=== PATIENT | male | born 1950 | race Caucasian/White ===

== ENCOUNTER 2022-02-25 23:47 | Emergency (ER) | payer MEDICARE, OTHER ==
[~2022-02-25] VITALS: Ht 172.7 cm; Wt 81.8 kg
[2022-02-26 00:10] VITALS: BP 101/61
--- NOTE | 2022-02-26 07:04 | ED General ---
General Chief Complaint: Trauma-Non Activation Stated Complaint: FALL Nursing Triage Note: Pt presents per [facility] crew transporting from [facility] the patient with s/p fall in hallway. Pt up to walk in yellow fall alert anti-skid socks and not utilizing walker and fell to floor onto left side. Pt was assessed by nurse that thought he was in pain with shortening leg. EMS assessment was negative for those findings. NO LOC, denial of hitting head per staff. Left hand skin tear noted and already has dressing in place. Source of Information: Patient Exam Limitations: No Limitations, Language Barrier History of Present Illness Date Seen by Provider: Feb 25, 2022 Time Seen by Provider: 23:45 Initial Comments Patient is a 71 yo senior care patient who fell from from standing and landed on left hip. Patient recently had hip rotation. Patient denies hitting his head, headache or neck pain. There is no loss of consciousness. Patient has had recent left hip surgery. He denies left hip injury has full range of motion with intact motor strength and is neurovascularly intact Location Injury Occurred: [facility] in hallway Timing/Duration: 1/2 Hour Severity: Mild Modifying Factors: improves with Other Associated Systoms: Other Allergies and Home Medications Allergies Coded Allergies: Penicillins (Unverified Adverse Reaction, Unknown, 02/26/22) Patient Home Medication List Home Medication List Reviewed: Yes Review of Systems Review of Systems Constitutional: see HPI EENTM: see HPI Respiratory: see HPI Cardiovascular: see HPI Gastrointestinal: see HPI Genitourinary: see HPI Musculoskeletal: see HPI Skin: see HPI Psychiatric/Neurological: See HPI Hematologic/Lymphatic: See HPI Immunological/Allergic: see HPI All Other Systems Reviewed Negative Unless Noted: Yes Past Azbdnbr-Wuvbse-Vpohvp Hx Patient Social History Tobacco Use?: No Smoking Status: Unknown if Ever Smoked Substance use?: Unable to obtain Alcohol Use?: Yes Pt feels they are or have been: Unable to obtain Immunizations Up To Date First/Initial COVID19 Vaccinat: unknown vaccination hx Past Medical History Surgery/Hospitalization HX: PER [place] DISCHARGE SUMMARY 02/16/22: L Hip Arthroplasty 01/17/22 with large retroperitoneal hematoma (stable on 02/12 CT), Distributive shock 01/22/22 with pressors and intermittant hemodialysis, GI bleed, Alcoholism, Liver cirrhosis with ascites (s/p LVP 01/25/22), Chronic Pancytopenia, 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 oz. kg; 27.00 BMI Method: General Appearance: No Apparent Distress, WD/WN, Anxious Eyes: Bilateral Eye Normal Inspection, Bilateral Eye PERRL HEENT: PERRL/EOMI Neck: Non Tender, Supple Respiratory: Chest Non Tender, Lungs Clear Cardiovascular: Regular Rate, Rhythm Gastrointestinal: No Pulsatile Mass, Soft Extremity: Non Tender, Other (Left hip, no tenderness bruising, swelling, full range of motion, 4+ muscle strain) Neurologic/Psychiatric: Alert, Normal Mood/Affect Focused Exam Sepsis Stage: Ruled Out Progress/Results/Core Measures Suspected Sepsis Recent Fever Within 48 Hours: No Infection Criteria Present: None New/Unexplained Altered Menta: No SIRS Temperature: Pulse: 74 Respiratory Rate: 16 Blood Pressure 101 /61 Mean: 74 Results/Orders Vital Signs/I&O 02/25/22 02/25/22 02/26/22 23:47 23:47 00:10 Temp 35.9 35.9 35.9 Pulse 73 73 74 Resp 16 16 16 B/P (MAP) 100/60 (73) 100/60 (73) 101/61 Pulse Ox 98 98 98 O2 Delivery Room Air Room Air Room Air Capillary Refill : Less Than 3 Seconds Blood Pressure Mean: 74 Departure Communication (Admissions) Emergent medical screening exam. Patient does not have a pain complaint or stated complaint with no stated complaint from senior care staff. Patient only slept on walking. No emergent medical condition present. Will defer further care to senior care medical staff. Impression Primary Impression: Encounter for medical screening examination Disposition: 01 HOME, SELF-CARE Condition: Stable Departure-Patient Inst. Decision time for Depature: 23:55 Referrals: CANDACE DESAI MD (PCP) Primary Care Physician Add. Discharge Instructions: Shmuel was evaluated from a fall from standing. No emergency medical condition was found to be present. Please resume medical care as appropriate All discharge instructions reviewed with patient and/or family. Voiced understanding. ALICE ZIMMERMAN 2, 2022 07:04
== END 2022-02-26 00:10 | disposition home or self-care (01) ==
LOC: ER FS 23:47
DX: Z00.00 Encounter for general adult medical examination without abnormal findings (principal)
CPT/HCPCS: 99283

== ENCOUNTER 2022-04-26 15:20 | Emergency (ER) | payer SELFPAY ==
[2022-04-26 15:41] LABS: BASOPHILS % (AUTO) 0 % (0-10); EOSINOPHILS % (AUTO) 0 % (0-10); HEMATOCRIT 33 % (40-54); LYMPHOCYTES # (AUTO) 0.5 10^3/uL (1.0-4.0); LYMPHOCYTES % (AUTO) 5 % (12-44); MEAN CORPUSCULAR HEMOGLOBIN 31 pg (25-34); MEAN CORPUSCULAR HGB CONC 33 g/dL (32-36); MEAN CORPUSCULAR VOLUME 93 fL (80-99); MEAN PLATELET VOLUME 10.8 fL (9.0-12.2); MONOCYTES # (AUTO) 0.4 10^3/uL (0.0-1.0); MONOCYTES % (AUTO) 4 % (0-12); NEUTROPHILS # (AUTO) 9.3 10^3/uL (1.8-7.8); NEUTROPHILS % (AUTO) 90 % (42-75); PLATELET COUNT 184 10^3/uL (130-400); WHITE BLOOD COUNT 10.4 10^3/uL (4.3-11.0)
[2022-04-26] MEDS ORDERED: VANCOMYCIN INJECTION 1,000 MG in NS (IVPB) 250 ML IV ONE (15:45)
[2022-04-26] MEDS ORDERED: MEROPENEM 500 MG in NS (IVPB) 100 ML IV ONE (15:45)
[2022-04-26] MEDS ORDERED: NS IV 1000 ML 1,000 ML IV SCH (15:45)
[2022-04-26 15:50] LABS: INR 1.3 (0.8-1.4); PROTHROMBIN TIME PATIENT 16.9 SEC (12.2-14.7)
--- NOTE | 2022-04-26 15:59 | Diagnostic Imaging Report ---
CLINICAL INDICATION: Patient is septic. Positive for Covid. EXAM: Portable chest x-ray upright view. COMPARISON: None. FINDINGS: There is significant cardiomegaly. There is pulmonary vascular congestion. Left costophrenic angle region is obscured and left pleural effusion may be considered. There is bibasilar atelectasis versus infiltrate, the left side more than the right. There is no pneumothorax. Chronic pacemaker/AICD is again seen overlying the left chest with two leads projecting over the chest. Sternotomy wires are noted. IMPRESSION: 1: There is significant cardiomegaly and pulmonary vascular congestion which can be seen with congestive heart failure. Pericardial effusion may also be considered. 2: There is bibasilar atelectasis or infiltrate with left lung base affected the most. Possible left pleural effusion. Dictated by: Dictated on workstation # [id number]
[2022-04-26 16:02] LABS: CREATININE SERUM 5.02 MG/DL (0.60-1.30); POTASSIUM 6.6 MMOL/L (3.6-5.0)
[2022-04-26 16:03] LABS: ALBUMIN 2.8 GM/DL (3.2-4.5); CALCIUM 9.3 MG/DL (8.5-10.1); TOTAL PROTEIN 6.3 GM/DL (6.4-8.2)
[2022-04-26] MEDS ORDERED: DEXTROSE 50% 50 ML (IMS) SYR ONE (16:06)
[2022-04-26 16:11] LABS: BAND NEUTROPHILS 9 %; EOSINOPHILS % (MANUAL) 1 %; LYMPHOCYTES % (MANUAL) 3 %; MONOCYTES % (MANUAL) 4 %; NEUTROPHILS % (MANUAL) 83 %
[2022-04-26 16:21] VITALS: BP 68/45
--- NOTE | 2022-04-26 16:28 | ED General ---
General Chief Complaint: General Problems/Pain Stated Complaint: ABD PAIN Nursing Triage Note: PT SENT FROM [facility] FOR COVID SYMPTOMS. HE WAS POSITIVE ON THE AND STILL NOT EATING WELL. HE HAS HAD DIARRHEA AND INCONTINENCE. THE FAMILY APPARENTLY IS DISCUSSING HOSPICE PER [facility]. PT IS A DNR. Source of Information: Patient, Caregiver, Care Home Records, RN/MD Exam Limitations: Physical Impairments History of Present Illness Date Seen by Provider: Apr 26, 2022 Time Seen by Provider: 15:23 Initial Comments 71-year-old male with past medical history of cirrhosis, dementia, heart failure [facility] concerns for abdominal pain and worsening mental status. Patient was recently discharged from the hospital due to infection, and is also on antibiotics for cellulitis. He was diagnosed with COVID roughly 6 days ago. Has not been acting quite his self. I contacted the [facility] and they provide the majority of the history. I also contacted the patient's power of cryptologic linguist, daughter Mary, who adds to the history. The patient is confused and not talking at this time. His daughter states that he would want to be comfortable, would not want aggressive treatments, and is certainly DNR/DNI. They have been talking about going on hospice for some time, and she states at this time they would like to go to hospice with full comfort care measures. Allergies and Home Medications Allergies Coded Allergies: Penicillins (Unverified Adverse Reaction, Unknown, 02/26/22) Patient Home Medication List Home Medication List Reviewed: Yes Review of Systems Review of Systems Constitutional: No fever EENTM: No nose congestion Respiratory: cough Cardiovascular: No chest pain Gastrointestinal: abdominal pain Genitourinary: decreased output Musculoskeletal: no symptoms reported Skin: rash Psychiatric/Neurological: Other (confusion) Hematologic/Lymphatic: No Symptoms Reported Immunological/Allergic: no symptoms reported All Other Systems Reviewed Negative Unless Noted: Yes Past Tzhslki-Tlleak-Xrdrph Hx Patient Social History Alcohol Use?: Yes Immunizations Up To Date First/Initial COVID19 Vaccinat: unknown vaccination hx Second COVID19 Vaccination Keegan: unknown vaccination hx Third COVID19 Vaccination Date: unknown vaccination hx Past Medical History Surgery/Hospitalization HX: PER [place] DISCHARGE SUMMARY 02/16/22: L Hip Arthroplasty 01/17/22 with large retroperitoneal hematoma (stable on 02/12 CT), Distributive shock 01/22/22 with pressors and intermittant hemodialysis, GI bleed, Alcoholism, Liver cirrhosis with ascites (s/p LVP 01/25/22), Chronic Pancytopenia, 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 oz. kg; 27.00 BMI Method: General Appearance: No Apparent Distress, Chronically ill Eyes: Bilateral Eye Normal Inspection HEENT: PERRL/EOMI, Normal ENT Inspection, Pharynx Normal Neck: Full Range of Motion, Normal Inspection, Non Tender, Supple Respiratory: Chest Non Tender, Lungs Clear, No Accessory Muscle Use, No Respiratory Distress, Crackles Cardiovascular: Regular Rate, Rhythm, Normal Peripheral Pulses, Other (significant lower extremity edema and anasarca of the abdomen) Gastrointestinal: Normal Bowel Sounds, Non Tender, Soft; No Distended, No Guarding Back: Normal Inspection, No CVA Tenderness, No Vertebral Tenderness Extremity: Normal Capillary Refill, Normal Range of Motion, Non Tender, No Calf Tenderness, Pedal Edema Neurologic/Psychiatric: Alert, Disoriented, Other (moving all extremities equally) Skin: Normal Color, Warm/Dry Lymphatic: No Adenopathy Focused Exam Lactate Level 04/26/22 15:36: Lactic Acid Level 2.29*H Lactic Acid Level Laboratory Tests Test 04/26/22 15:36 Lactic Acid Level 2.29 MMOL/L (0.50-2.00) *H Progress/Results/Core Measures Suspected Sepsis SIRS Temperature: Pulse: 101 Respiratory Rate: 18 Laboratory Tests 04/26/22 15:38: White Blood Count 10.4 Blood Pressure 69 /56 Mean: 60 04/26/22 15:36: Lactic Acid Level 2.29*H Laboratory Tests 04/26/22 15:36: Creatinine 5.02H, INR Comment 1.3, Total Bilirubin 1.0 04/26/22 15:38: Platelet Count 184 Results/Orders Lab Results Laboratory Tests Test 04/26/22 15:36 04/26/22 15:38 Range/Units Prothrombin Time 16.9 H 12.2-14.7 SEC INR Comment 1.3 0.8-1.4 Activated Partial Thromboplast Time 41 H 24-35 SEC Sodium Level 139 135-145 MMOL/L Potassium Level 6.6 *H 3.6-5.0 MMOL/L Chloride Level 107 98-107 MMOL/L Carbon Dioxide Level 17 L 21-32 MMOL/L Anion Gap 15 H 5-14 MMOL/L Blood Urea Nitrogen 65 H 7-18 MG/DL Creatinine 5.02 H 0.60-1.30 MG/DL Estimat Glomerular Filtration Rate 12 BUN/Creatinine Ratio 13 Glucose Level 43 *L 70-105 MG/DL Lactic Acid Level 2.29 *H 0.50-2.00 MMOL/L Calcium Level 9.3 8.5-10.1 MG/DL Corrected Calcium 10.3 H 8.5-10.1 MG/DL Total Bilirubin 1.0 0.1-1.0 MG/DL Aspartate Amino Transf (AST/SGOT) 105 H 5-34 U/L Alanine Aminotransferase (ALT/SGPT) 31 0-55 U/L Alkaline Phosphatase 126 40-136 U/L Total Protein 6.3 L 6.4-8.2 GM/DL Albumin 2.8 L 3.2-4.5 GM/DL White Blood Count 10.4 4.3-11.0 10^3/uL Red Blood Count 3.53 L 4.30-5.52 10^6/uL Hemoglobin 11.0 L 13.3-17.7 g/dL Hematocrit 33 L 40-54 % Mean Corpuscular Volume 93 80-99 fL Mean Corpuscular Hemoglobin 31 25-34 pg Mean Corpuscular Hemoglobin Concent 33 32-36 g/dL Red Cell Distribution Width 16.3 H 10.0-14.5 % Platelet Count 184 130-400 10^3/uL Mean Platelet Volume 10.8 9.0-12.2 fL Immature Granulocyte % (Auto) 1 % Neutrophils (%) (Auto) 90 H 42-75 % Lymphocytes (%) (Auto) 5 L 12-44 % Monocytes (%) (Auto) 4 0-12 % Eosinophils (%) (Auto) 0 0-10 % Basophils (%) (Auto) 0 0-10 % Neutrophils # (Auto) 9.3 H 1.8-7.8 10^3/uL Lymphocytes # (Auto) 0.5 L 1.0-4.0 10^3/uL Monocytes # (Auto) 0.4 0.0-1.0 10^3/uL Eosinophils # (Auto) 0.0 0.0-0.3 10^3/uL Basophils # (Auto) 0.0 0.0-0.1 10^3/uL Immature Granulocyte # (Auto) 0.1 0.0-0.1 10^3/uL Neutrophils % (Manual) 83 % Lymphocytes % (Manual) 3 % Monocytes % (Manual) 4 % Eosinophils % (Manual) 1 % Band Neutrophils 9 % My Orders Orders - THANH SÁNCHEZ MD Cbc With Automated Diff (04/26/22 15:36) Comprehensive Metabolic Panel (04/26/22 15:36) Blood Culture (04/26/22 15:36) Urinalysis (04/26/22 15:36) Urine Culture (04/26/22 15:36) Protime With Inr (04/26/22 15:36) Partial Thromboplastin Time (04/26/22 15:36) Chest 1 View Ap/Pa Only (04/26/22 15:36) Ed Iv/Invasive Line Start (04/26/22 15:36) Ed Iv/Invasive Line Start (04/26/22 15:36) Vital Signs Adult Sepsis Patie Q15M (04/26/22 15:36) O2 (04/26/22 15:36) Remove Rings In Anticipation O (04/26/22 15:36) Lactic Acid Analyzer (04/26/22 15:36) Ns Iv 1000 Ml (Sodium Chloride 0.9%) (04/26/22 15:45) Vancomycin Injection (Vancomycin Injecti (04/26/22 15:45) Meropenem (Merrem 500 Mg) (04/26/22 15:45) Manual Differential (04/26/22 15:38) D50w (Emergency) Syringe (Dextrose 50% 5 (04/26/22 16:06) Medications Given in ED Current Medications Medications Dose Ordered Sig/Shayne Route Start Time Stop Time Status Last Admin Dose Admin Meropenem 500 mg/ Sodium Chloride 100 ml @ 200 mls/hr ONCE ONCE IV 04/26/22 15:45 04/26/22 16:14 DC 04/26/22 15:43 200 MLS/HR Vital Signs/I&O 04/26/22 04/26/22 15:40 15:47 Temp 36.7 Pulse 101 Resp 18 B/P (MAP) 69/56 (60) Pulse Ox 88 88 O2 Delivery Nasal Cannula Nasal Cannula O2 Flow Rate 6.00 6.00 Capillary Refill : Less Than 3 Seconds Blood Pressure Mean: 60 Progress Note : Progress Note 71-year-old male with above history coming in due to confusion, and pain. The patient was hypotensive and hypoxic on presentation. He was immediately placed on 6 L with oxygen around 90%. Patient has paperwork that he would not want anything invasive including DNR/DNR. [facility] while nurses were getting IVs and blood work on the patient. I then contacted the patient's power of cryptologic linguist, his daughter Mary. She states the patient would not want anything aggressive at this point, they have been talking about hospice for some time, and she would like to go full comfort care measures. I did give the patient antibiotics while waiting on this discussion with his daughter. The patient's glucose was in the 40s and he did get D50. His potassium was elevated, creatinine is elevated, and he appears to be in kidney failure. I discussed with the daughter that he likely is in the dying process, and she reiterates that she would not want any further treatment or aggressive treatment such as dialysis. The patient was transitioned over to comfort care per her instructions. He was then discharged back to [facility] for hospice. Departure Impression Primary Impression: Kidney failure Qualified Codes: N17.8 - Other acute kidney failure; N18.5 - Chronic kidney disease, stage 5 Additional Impressions: COVID-19 Septic shock Respiratory failure Qualified Codes: J96.01 - Acute respiratory failure with hypoxia Disposition: HOME, SELF-CARE Condition: Unchanged Departure-Patient Inst. Decision time for Depature: 16:28 Referrals: CANDACE DESAI MD (PCP/Family) Primary Care Physician Patient Instructions: COVID-19 (DC) Add. Discharge Instructions: Per discussion with the daughter and POA, the patient is to be on hospice and comfort care. THANH SÁNCHEZ MD Apr 26, 2022 16:28
== END 2022-04-26 16:49 | disposition home or self-care (01) ==
LOC: EDUNIT# 15:20 → ER FS 15:25
DX: N19 Unspecified kidney failure (principal); U07.1 COVID-19; A41.9 Sepsis, unspecified organism; R65.21 Severe sepsis with septic shock; J96.01 Acute respiratory failure with hypoxia; Z66 Do not resuscitate; Z73.0 Burn-out
CPT/HCPCS: 36415; 71045; 80053; 83605; 85007; 85027; 85610; 85730; 87040